=== PATIENT | male | born 1955 | race Caucasian/White ===

== ENCOUNTER 2022-12-05 19:26 | Emergency (ER) | payer MEDICARE, MEDICAID, SELFPAY ==
[2022-12-05 19:40] VITALS: BP 187/120; PULSE 82; RESP 16; TEMP 36.6; O2SAT 98; BMI 38.0
--- NOTE | 2022-12-05 19:42 | CRLHL7_ITS ---
For Patients: As a result of the Cures Act, medical imaging exams and procedure reports are released immediately into your electronic medical record. You may view this report before your referring provider. If you have questions, please contact your health care provider. Indication: Trauma. Technique: Right elbow, 3 views. Comparison: None. Findings: Bones: Subtle irregularity at the distal aspect of the humerus seen on the lateral view.. Joint spaces: Subtle superior displacement of the anterior fat pad.. Soft tissues: Soft tissue swelling surrounding the elbow.. Impression: Subtle irregularity seen only on the lateral view at the distal aspect of the humerus may represent a small nondisplaced fracture. Consider further evaluation with CT of the elbow as clinically indicated. Dictated by Jocelyn Echavarria MD @ 12/05/2022 8:01:31 PM (Electronically Signed)
--- NOTE | 2022-12-05 19:59 | ED.GENADULT ---
HPI - General Adult General Chief complaint: Fall/Minor Trauma Stated complaint: Fall Injured Right Elbow Time Seen by Provider: 12/05/22 19:28 Source: patient Mode of arrival: ambulatory Limitations: no limitations History of Present Illness HPI narrative: 67-year-old male presents to the ED after a slip on ice afternoon, about 28 hours ago. hit the back of his head, did not lose consciousness also came down on his bent left elbow, hitting the olecranon. Now has pain with supination and pronation. Pain is to the right of the olecranon and also along the ulnar tuberosities near the proximal ulna. Pain is worse with movement in the arm, no swelling noted. No bruising, no cuts or open skin. He is not anticoagulated. He tried taking Aleve for his pain it does help temporarily, last taken about 12 hours ago. Declines pain medication at this time. Denies significant headache or neurological changes associated the head injury, no vision changes. No other areas of injury noted. Past medical history is notable for hypertension, no longer currently using any antihypertensives. Denies recent surgery. Denies alcohol intoxication or other impairing substances. No allergies. ROS is notable as above, otherwise denies times 12 systems. Related Data Home Medications Medication Instructions Recorded Confirmed No Known Home Medications 12/05/22 12/05/22 Allergies Allergy/AdvReac Type Severity Reaction Status Date / Time No Known Drug Allergies Allergy Verified 12/05/22 19:42 Exam Const: Vital Signs, click to edit/add: Vital Signs - 24 hr 12/05/22 19:40 12/05/22 20:29 Temperature 97.8 F 97.8 F Pulse Rate [Left P ulse Oximeter] 82 82 Respiratory Rate 16 16 Blood Pressure [Le ft Upper Arm] 187/120 H 187/120 H Pulse Oximetry 98 Oxygen Delivery Me thod Room Air Documenting provider has reviewed patient's vital signs: yes Common normals: no apparent distress General appearance: cooperative and comfortable HENMT: Common normals: normocephalic and head/scalp atraumatic Head and scalp: normocephalic and atraumatic Mouth: oral and palatal mucosa normal Throat: posterior oropharynx normal Eye: Other: Pupils equal with normal visual gaze Resp: Common normals: normal respiratory effort Effort & inspection: able to speak in complete sentences Cardio: Common normals: regular rate and peripheral pulses 2+ throughout Rate: regular rate Peripheral pulses: pulses 2+ throughout Extremity: Other: Moves left hand normally. Moves right hand and wrist normally. Moves right shoulder normally. The right elbow has significant guarding. It appears swollen. There is no open skin or bruising. Marked tenderness with pronation and supination, cannot fully extend. No obvious deformity or crepitus. Psych: Common normals: mental status grossly normal, cooperative and affect normal Skin: Common normals: no rashes or lesions noted General skin exam: no rashes or lesions noted Course Vital Signs Vital signs: Initial Vital Signs Temperature 97.8 F 12/05/22 19:40 Temperature Source Temporal Artery Scan 12/05/22 19:40 Pulse Rate 82 12/05/22 19:40 Respiratory Rate 16 12/05/22 19:40 Blood Pressure 187/120 H 12/05/22 19:40 Blood Pressure Mean 142 12/05/22 19:40 Blood Pressure Position Sitting 12/05/22 19:40 Pulse Oximetry 98 12/05/22 19:40 Oxygen Delivery Method 12/05/22 19:40 Vital Signs Temperature 97.8 F 12/05/22 19:40 Pulse Rate 82 12/05/22 19:40 Respiratory Rate 16 12/05/22 19:40 Blood Pressure 187/120 H 12/05/22 19:40 Pulse Oximetry 98 12/05/22 19:40 Oxygen Delivery Method 12/05/22 19:40 Temperature 97.8 F 12/05/22 20:29 Pulse Rate 82 12/05/22 20:29 Respiratory Rate 16 12/05/22 20:29 Blood Pressure 187/120 H 12/05/22 20:29 Pulse Oximetry 98 12/05/22 19:40 Oxygen Delivery Method 12/05/22 19:40 Medical Decision Making MDM Narrative Medical decision making narrative: Strong suspicion for fracture. Declines pain medication x-ray ordered. Update: Patient continues to decline pain medication. Small nondisplaced fracture discussed. Reviewed with ortho team, they will contact him for follow-up. Recommend sling with frequent range of motion exercises, Tylenol and time. Patient was agreeable to this. He verbalizes that he does not think that he will actually wear the sling. He is a grown adult and has the right to do so but I did encourage this. Alarm symptoms reviewed. Orthopedic referral placed. Imaging Data Elbow x-ray: Attestation: I have reviewed the pertinent imaging results. My impression: Fracture of distal humerus near radial head, slight with no significant displacement. Effusion noted with anterior fat pad Radiologist's impression: Impression: Subtle irregularity seen only on the lateral view at the distal aspect of the humerus may represent a small nondisplaced fracture. Consider further evaluation with CT of the elbow as clinically indicated. Discharge Plan Discharge Clinical Impression: Elbow fracture, right Patient Disposition: Home, Self-Care Condition: Improved Instructions: Elbow Fracture (ED), How to Use a Sling (ED) Additional Instructions: As we discussed, there is a small fracture at the bottom of the humerus bone near the inside crease of the elbow. This does not need to be in a cast, actually has better outcomes without a cast. I do strongly recommend a sling for when you are active but you may take it out at rest. It is important that you do take the arm out of the sling every 4 hours while you are awake to flex and extend the elbow and move it around to prevent stiffness. It is okay to take Tylenol and/or ibuprofen as needed for pain. The orthopedic team will call you to set up a follow-up in a few weeks. Apply ice for pain as needed. I do recommend that you make a follow-up appointment with a primary care provider to have your blood pressure recheck and readdressed. You should be on blood pressure medication. Activity Level: Light activity Discharge Diet: Regular Prescriptions: No Action No Known Home Medications Follow Up/Referrals: Cristóbal Chino MD [Staff Physician] - 2 Weeks (First available orthopedic) Stand Alone Forms: [employer] Info Instructions
[2022-12-05 20:29] VITALS: BP 187/120; PULSE 82; RESP 16; TEMP 36.6
== END 2022-12-05 20:39 | disposition home or self-care (01) ==
LOC: ED 20:33
PROVIDERS: Emergency Provider Family Medicine
DX: S42.401A Unspecified fracture of lower end of right humerus, initial encounter for closed fracture (principal); W00.9XXA Unspecified fall due to ice and snow, initial encounter
CPT/HCPCS: 73080; 99282; 99283